=== PATIENT | female | born 1960 | race Caucasian/White ===

== ENCOUNTER 2017-06-18 20:42 | Observation (INO) | payer OTHER ==
[~2017-06-18] VITALS: Ht 180.3 cm; Wt 101.8 kg
[~2017-06-18 20:42] MED LIST: ACID CONTROL20 MG PO; ACID REDUCER200 MG PO; ACULAR 0.5100 DROP/5 BOTH EYES; ALAVERT10 MG PO; ALLERGY EYE5 ML; ANAPROX DS550 M1 PO; ASPIR-LOW81 MG PO; Antivert PO; BACTRIM,SEPT1 TABLET PO; BENADRYL25 MG PO; BUTALBITAL-APA1 EACH PO; Bactrim,Septra DS 80 PO; CEFTIN500 MG; CLEOCIN300 MG PO; CLONAZEPAM0.5 MG PO; CLONAZEPAM1 M1 PO; COBAL-10001000 MCG/2 PO; COUMADIN,JANTO7.5 MG PO; COUMADIN,JANTOVE5 MG PO; COUMADIN,JANTOVE6 MG PO; COUMADIN3 MG PO; COUMADIN4 MG PO; Ceftin PO; Coumadin dosing per PO; Coumadin,Jantoven PO; DESYREL100 MG PO; DIAZEPAM10 MG PO; DIAZEPAM5 MG PO; DITROPAN5 MG PO; Desyrel 150 MG Tab PO; Desyrel PO; Ditropan PO; ENDOCET 5-3251 EACH PO; ESCITALOPRAM OX20 MG PO; FERROUS SULFATE28 MG PO; FLONASE16 G1 BOTH NARES; FLONASE16 G1 NS; FLOVENT DISKUS1 DIS2 IH; FLUTICASONE PRO16 GM NS; FOLIC ACID1 MG PO; FOLVITE1 MG PO; Flonase BOTH NARES; Folvite PO; GABAPENTIN300 MG PO; GLUCOPHAGE500 M1 PO; GLUCOPHAGE500 MG PO; Glucophage PO; HYDROCHLOROTH12.5 M3 PO; HYDROCHLOROTHIA25 MG PO; HYDROCODON-ACE1 EAC8 PO; HYDROCODON-ACE1 EACH; HYDROXYCHLOROQ200 MG; HYDROXYCHLOROQ200 MG PO; IRON SUPPLEMEN325 MG PO; IRON325 M1 PO; IRON325 MG PO; IRON45 MG PO; KEFLEX500 MG PO; KEFLEX750 MG PO; LACTINEX,FLO1 PACKET PO; LASIX10 MG PO; LEXAPRO10 MG PO; LEXAPRO20 MG PO; LIDODERM 5% P1 PATCH TD; LIORESAL10 MG PO; LORATADINE10 M2; LORTAB 5-500 T1 EACH PO; LORTAB 7.5-3251 EACH PO; LORTAB 7.5/51 TABLET PO; LOVENOX100 MG/1 M PO; Lasix PO; MECLIZINE HCL12.5 M1 PO; MECLIZINE HCL25 M3 PO; METAXALONE800 MG; MOBIC15 MG PO; MOBIC7.5 MG PO; MOTRIN800 MG PO; MULTI-DAY VITA1 EACH PO; MULTIVITAMIN1 EAC1 PO; MULTIVITAMIN1 EAC2 PO; NOVOLOG PE100 UNITS/ SC; OMEPRAZOLE20 MG PO; OMEPRAZOLE40 M1; OMEPRAZOLE40 M1 PO; OXYBUTYNIN CHLOR5 MG; OXYBUTYNIN CHLOR5 MG PO; OXYBUTYNIN PO; PERCOCET 5-3251 EACH PO; PERCOCET 5/31 TABLET PO; PERCOCET 7.51 TABLET PO; PERPHENAZINE4 MG; PLAQUENIL200 MG PO; PLAVIX75 MG PO; PRAVACHOL40 MG PO; PRILOSEC20 MG PO; PRILOSEC40 MG PO; PROMETHAZINE HC25 M1 PO; PROTONIX40 MG PO; Percocet 5/325,Endoc PO; Plaquenil PO; ROBAXIN750 MG PO; SILVADENE20 GM TP; SIMVASTATIN40 M1 PO; SIMVASTATIN40 MG PO; SKELAXIN400 M1 PO; SKELAXIN800 MG PO; Skelaxin PO; THERAGRAN1 TABLET PO; TOPAMAX25 MG PO; TOPAMAX50 MG PO; TRAMADOL HCL50 MG PO; TRAZODONE HCL100 MG PO; TRAZODONE HCL150 MG PO; TRAZODONE HCL50 MG PO; TRILAFON2 MG PO; TRILAFON4 MG PO; TYLENOL WITH C1 EACH PO; Tylenol Extra Streng PO; Tylenol Regular Stre PO; ULTRAM50 MG PO; VALIUM10 MG PO; VALIUM5 MG PO; VICODIN ES 7.51 EAC1 PO; VICODIN,LORT1 TABLET PO; VIGAMOX 0.60 DROP/3 BOTH EYES; VOLTAREN 1% GE100 GM PO; VOLTAREN75 MG PO; Valium PO; WARFARIN SODIUM5 MG PO; WARFARIN SODIUM6 MG PO; XARELTO 20 MG TABLET PO; XARELTO20 MG PO; ZOCOR40 MG PO; Zocor PO; [UNRECOGNIZED DRUG - OTHER] MC
[2017-06-18 21:57] LABS: HEMATOCRIT 37.4 % (36.0-46.0); HEMOGLOBIN 13.1 G/DL (11.9-15.5); MCH 31.2 PG (29.0-34.0); PLATELET COUNT 140 K/uL (156-360); RBC DIS.WIDTH-CV 12.6 % (11.8-14.6); RBC DIS.WIDTH-SD 41.1 % (39-53); WHITE BLOOD COUNT 5.5 K/uL (4.1-10.2)
[2017-06-18 22:03] LABS: INTER. NORMALIZED RATIO 3.4
[2017-06-18 22:05] LABS: CHLORIDE 107 mEq/L (99-109); POTASSIUM 3.1 mEq/L (3.7-5.4); SODIUM 143 mEq/L (136-147)
[2017-06-18 22:06] LABS: PTT 42.7 SEC (25-37)
[2017-06-18 22:07] LABS: GLUCOSE 85 mg/dL (70-99)
[2017-06-18 22:10] LABS: SERUM ETHYL ALCOHOL < 10 mg/dL
[2017-06-18 22:11] LABS: CREATININE 0.8 mg/dL (0.6-1.3); GFR ESTIMATE (CALCULATED) > 59 mL/min/
[2017-06-18 22:13] LABS: UREA NITROGEN (BUN) 8 mg/dL (9-23)
[2017-06-18 22:14] LABS: SALICYLATE < 5.0 MG/DL (15-30)
[2017-06-18 22:15] LABS: ACETAMINOPHEN (TYLENOL) < 10 mcg/mL (10-30)
[2017-06-18 22:28] LABS: APPEARANCE CLEAR ((CLEAR)); BILIRUBIN NEGATIVE; BLOOD NEGATIVE; COLOR YELLOW ((YELLOW)); GLUCOSE (STRIP) NEGATIVE; KETONES NEGATIVE; LEUKOCYTES NEGATIVE; NITRITE NEGATIVE; PROTEIN (STRIP) 30; SPECIFIC GRAVITY 1.029 (1.000-1.030); UCUL ADDED? NO; UROBILINOGEN 0.2 MG/DL (0.2-1.0)
[2017-06-18 22:39] LABS: AMPHETAMINE NEGATIVE (500 ng/mL); BARBITURATES NEGATIVE (200 ng/mL); BENZODIAZEPINES NEGATIVE (150 ng/mL); BUPRENORPHINE NEGATIVE (10 ng/mL); COCAINE NEGATIVE (150 ng/mL); METHADONE NEGATIVE (200 ng/mL); METHAMPHETAMINE NEGATIVE (500 ng/mL); OPIATES (MORPHINE) PRESUMPTIVE POSITIVE (100 ng/mL); OXYCODONE NEGATIVE (100 ng/mL); PHENCYCLIDINE NEGATIVE (25 ng/mL); PROPOXYPHENE NEGATIVE (300 ng/mL); THC CANNABINOIDS NEGATIVE (50 ng/mL); TRICYCLIC ANTIDEPRESSANTS PRESUMPTIVE POSITIVE (300 ng/mL)
[2017-06-19 02:26] VITALS: BP 144/80
[2017-06-19 03:05] LABS: BASOPHIL (%) 0.4 % (0-1); EOSINOPHIL (%) 1.8 % (0-5); EOSINOPHIL COUNT 0.1 K/uL (0-0.3); HEMATOCRIT 36.7 % (36.0-46.0); HEMOGLOBIN 12.6 G/DL (11.9-15.5); IMMATURE GRANULOCYTE (%) 0.2 % (0.0-0.7); LYMPHOCYTE COUNT 2.2 K/uL (1.0-2.8); MCH 30.7 PG (29.0-34.0); MCHC 34.3 G/DL (30.0-36.0); MCV 89.3 FL (83-99); MONOCYTE (%) 7.1 % (3-12); MONOCYTE COUNT 0.4 K/uL (0-0.8); NEUTROPHIL (%) 46.5 % (45-76); NEUTROPHIL COUNT 2.3 K/uL (1.8-6.4); PLATELET COUNT 144 K/uL (156-360); RBC DIS.WIDTH-CV 12.6 % (11.8-14.6); RBC DIS.WIDTH-SD 40.9 % (39-53); RED BLOOD COUNT 4.11 M/uL (3.80-5.20)
[2017-06-19 03:16] LABS: INTER. NORMALIZED RATIO 3.4
[2017-06-19 03:19] LABS: PTT 43.9 SEC (25-37)
[2017-06-19 03:21] LABS: CHLORIDE 108 mEq/L (99-109); POTASSIUM 3.1 mEq/L (3.7-5.4); SODIUM 143 mEq/L (136-147)
[2017-06-19 03:23] LABS: GLUCOSE 85 mg/dL (70-99)
[2017-06-19 03:27] LABS: CREATININE 0.8 mg/dL (0.6-1.3); GFR ESTIMATE (CALCULATED) > 59 mL/min/
[2017-06-19 03:28] LABS: UREA NITROGEN (BUN) 8 mg/dL (9-23)
[2017-06-19 08:04] VITALS: BP 120/72
[2017-06-19 10:14] LABS: ALBUMIN 3.8 G/DL (3.2-4.8); ALKALINE PHOSPHATASE 42 IU/L (3-129); ALT (GPT) 16 IU/L (3-49); AST (GOT) 23 IU/L (2-34); DIRECT BILIRUBIN 0.1 mg/dL (0.0-0.3); TOTAL BILIRUBIN 0.6 MG/DL (0.0-1.0); TOTAL PROTEIN 5.8 G/DL (6.4-8.3)
[2017-06-19 13:58] LABS: CREATININE 0.8 MG/DL (0.6-1.3); GFR ESTIMATE (CALCULATED) > 59 mL/min/; GLUCOSE 97 mg/dL (70-99); SODIUM 149 MEQ/L (136-147); UREA NITROGEN (BUN) 7 mg/dL (9-23)
[2017-06-19 13:59] LABS: CHLORIDE 111 MEQ/L (99-109); MAGNESIUM 1.8 mg/dl (1.3-2.7); POTASSIUM 3.4 MEQ/L (3.7-5.4)
[2017-06-19 15:45] VITALS: BP 131/63
[2017-06-19 19:25] VITALS: BP 124/58
[2017-06-20 00:17] VITALS: BP 130/74
[2017-06-20 06:26] LABS: HEMATOCRIT 37.7 % (36.0-46.0); HEMOGLOBIN 12.7 G/DL (11.9-15.5); MCH 30.2 PG (29.0-34.0); MCHC 33.7 G/DL (30.0-36.0); MCV 89.5 FL (83-99); PLATELET COUNT 152 K/uL (156-360); RBC DIS.WIDTH-CV 12.8 % (11.8-14.6); RBC DIS.WIDTH-SD 41.8 % (39-53); RED BLOOD COUNT 4.21 M/uL (3.80-5.20); WHITE BLOOD COUNT 4.5 K/uL (4.1-10.2)
[2017-06-20 06:48] LABS: INTER. NORMALIZED RATIO 1.1
[2017-06-20 07:12] LABS: CHLORIDE 109 MEQ/L (99-109); CREATININE 0.8 MG/DL (0.6-1.3); GFR ESTIMATE (CALCULATED) > 59 mL/min/; GLUCOSE 92 mg/dL (70-99); MAGNESIUM 1.7 mg/dl (1.3-2.7); SODIUM 145 MEQ/L (136-147); UREA NITROGEN (BUN) 9 mg/dL (9-23)
[2017-06-20 08:34] VITALS: BP 139/89
[2017-06-20 16:54] VITALS: BP 149/80
[2017-06-20] MEDS ORDERED: PROTONIX40 MG PO (19:43)
[2017-06-20] MEDS ORDERED: AMBIEN5 MG PO (19:44)
[2017-06-20] MEDS ORDERED: COLACE100 MG PO (19:44)
[2017-06-20] MEDS ORDERED: ZOFRAN4 MG PO (19:45)
[2017-06-20] MEDS ORDERED: NORCO 5/3251 TABLET PO (19:46)
== END 2017-06-20 18:33 ==
LOC: EME → EDBD 20:42 → 5SOUTH 06-19 00:42 → EDOF 06-19 00:42 → ENRESERV 06-19 00:43 → 5SOUTH 06-19 02:23 → ENPENDDIS 06-20 14:37 → 5SOUTH 06-20 18:33
PROVIDERS: Emergency Medicine; Hospitalist; Physician Assistant
DX: T45.512A Poisoning by anticoagulants, intentional self-harm, initial encounter (principal); F60.3 Borderline personality disorder; F32.9 Major depressive disorder, single episode, unspecified; F43.10 Post-traumatic stress disorder, unspecified; E87.6 Hypokalemia; D68.51 Activated protein C resistance; E11.9 Type 2 diabetes mellitus without complications; J44.9 Chronic obstructive pulmonary disease, unspecified; I25.2 Old myocardial infarction; G89.29 Other chronic pain; M54.5 Low back pain; E66.9 Obesity, unspecified; K21.9 Gastro-esophageal reflux disease without esophagitis; E78.5 Hyperlipidemia, unspecified; I10 Essential (primary) hypertension; Z85.41 Personal history of malignant neoplasm of cervix uteri; Z86.718 Personal history of other venous thrombosis and embolism; Z86.73 Personal history of transient ischemic attack (TIA), and cerebral infarction without residual deficits; Z88.5 Allergy status to narcotic agent
CPT/HCPCS: 80048; 80048 91; 80076; 81003; 83735; 84999; 85025; 85027; 85610; 85730; 90839; 99281; 99284; G0378; G0480; J1170; Q0175

== ENCOUNTER 2017-06-20 18:36 | Inpatient (IN) | payer OTHER ==
[2017-06-20] MEDS ORDERED: PROTONIX40 MG PO (19:43)
[2017-06-20] MEDS ORDERED: COLACE100 MG PO (19:44)
[2017-06-20] MEDS ORDERED: AMBIEN5 MG PO (19:44)
[2017-06-20] MEDS ORDERED: ZOFRAN4 MG PO (19:45)
[2017-06-20] MEDS ORDERED: NORCO 5/3251 TABLET PO (19:46)
[2017-06-21 08:30] VITALS: BP 129/63
[2017-06-21 15:18] VITALS: BP 122/70
[2017-06-22 08:08] VITALS: BP 125/70
[2017-06-22] MEDS ORDERED: GABAPENTIN100 MG PO (09:55)
[2017-06-22] MEDS ORDERED: DESYREL 150 MG150 MG PO (09:55)
[2017-06-22] MEDS ORDERED: ESCITALOPRAM OX10 MG PO (09:55)
== END 2017-06-22 12:40 | disposition home or self-care (01) | DRG 885 ==
LOC: 1WEST 18:36 → ENRESERV 18:37 → 1WEST 18:40
PROVIDERS: Psychiatry & Neurology Psychiatry
DX: F33.0 Major depressive disorder, recurrent, mild (principal); T45.512A Poisoning by anticoagulants, intentional self-harm, initial encounter; Z91.5 Personal history of self-harm; F60.3 Borderline personality disorder; F41.9 Anxiety disorder, unspecified; E11.9 Type 2 diabetes mellitus without complications; E78.5 Hyperlipidemia, unspecified; J44.9 Chronic obstructive pulmonary disease, unspecified; K21.9 Gastro-esophageal reflux disease without esophagitis; Z86.73 Personal history of transient ischemic attack (TIA), and cerebral infarction without residual deficits; Z85.41 Personal history of malignant neoplasm of cervix uteri
CPT/HCPCS: 82948